=== PATIENT | female | born 1960 | race Caucasian/White ===

== ENCOUNTER 2018-04-09 16:50 | Inpatient (IN) | payer OTHER ==
--- OUTSIDE RECORDS SUMMARY | 2018-04-09 16:52 | XMS REPORT ---
:1960 Author Organization [facility] Address [address] [place] [address] [address]. [address] [place] [address] Care Team Providers Name Role Phone Unavailable Unavailable Unavailable Problems This patient has no known problems. Allergies, Adverse Reactions, Alerts This patient has no known allergies or adverse reactions. Medications This patient has no known medications. Results Test Description Test Time Test Comments Text Results Atomic Results Result Comments MM, BINDU, 2017-12-24 Reason for #[id number] - MAMMO, SCREENING, 12:47:00 Exam:->[id number] MM, DIGITAL, MAMMO, BILATERAL SCREENING, BILATERAL INCLUDING CAD INCLUDING CADBILATERAL DIGITAL SCREENING MAMMOGRAM 3D/2D WITH CAD: 12/23/2017Comparison is made to exams dated: 07/31/2016 mammogram and 07/26/2015 mammogram - [facility]. There are scattered fibroglandular elements in both breasts that could obscure a lesion on mammography. Tomosynthesis 3D imaging of the breast was also performed. Current study was also evaluated with a Computer Aided Detection (CAD) system. No significant masses, calcifications, or other findings are seen in either breast. IMPRESSION: NEGATIVEThere is no mammographic evidence of malignancy. A 1 year screening mammogram is recommended. Sonia Franco M.D., mc/michlele:12/24/2017 12:47:39 Normal BiRad 1-2 Mammogram BI-RADS: 1 Negative G0202
--- OUTSIDE RECORDS SUMMARY | 2018-04-09 16:52 | XMS REPORT | Clinical Summary ---
:1960 Author Organization [facility] Address [address] [place] [address] Phone Care Team Providers Name Role Phone Unavailable Primary Care Provider Unavailable Allergies No Known Allergies Current Medications Prescription Sig. Disp. Refills Start Date End Date Status lisinopril 11/12/2017 Active (PRINIVIL,ZESTRIL) 10 MG tablet PROGESTERONE, BULK, 37.5 mg by Active MISC Miscellaneous route 2 (two) times daily. ESTRADIOL, BULK, Take 0.625 mg by Active MISC mouth 2 (two) times daily. LACTOBACILLUS Take by mouth. Discontinued ACIDOPHILUS 8 (PROBIOTIC ORAL) LISINOPRIL ORAL Take by mouth. Discontinued 8 Active Problems Problem Noted Date HTN (hypertension) 07/17/2015 Perimenopausal vasomotor symptoms 07/17/2015 Encounters Date Type Specialty Care Team Description 12/23/2017 Hospital Encounter Tessie Mitchell Screening breast MD Hedy examination 12/23/2017 Outside Orders Central Scheduling Tessie Mitchell Screening breast MD Hedy examination (Primary Dx) 12/22/2017 Abstract Obstetrics and Sidra Mcarthur Gynecology MA 12/17/2017 Office Visit Obstetrics and Tessie Mitchell Well woman exam with Gynecology MD Hedy routine gynecological exam (Primary Dx) after 04/08/2017 Family History Medical History Relation Name Comments Diabetes Daughter Type1 Breast cancer Mother Diabetes Mother Type2 Hypertension Mother Relation Name Status Comments Daughter Mother Social History Tobacco Use Types Packs/Day Years Used Date Never Smoker Smokeless Tobacco: Never Used Alcohol Use Drinks/Week oz/Week Comments Yes 1-2 Standard drinks or equivalent 0.5 - 1.0 Sex Assigned at Date Recorded Not on file Last Filed Vital Signs Vital Sign Reading Time Taken Blood Pressure 111/71 12/17/2017 10:51 AM CDT Pulse 57 12/17/2017 10:51 AM CDT Temperature 36.8 C (98.2 F) 12/17/2017 10:51 AM CDT Respiratory Rate - - Oxygen Saturation - - Inhaled Oxygen Concentration - - Weight 52.6 kg (116 lb) 12/17/2017 10:51 AM CDT Height 157.5 cm (5' 2") 12/17/2017 10:51 AM CDT Body Mass Index 21.22 12/17/2017 10:51 AM CDT Plan of Treatment Health Maintenance Due Date Last Done Comments INFLUENZA VACCINE 04/06/2018 Results Mammogram Screening Bilateral (12/23/2017 9:43 AM) Specimen Performing Laboratory [facility] Narrative #[id number] - MM, DIGITAL, MAMMO, SCREENING, BILATERAL INCLUDING CAD BILATERAL DIGITAL SCREENING MAMMOGRAM 3D/2D WITH CAD: 12/23/2017 Comparison is made to exams dated:07/31/2016 mammogram and 07/26/2015 mammogram - [facility]. There are scattered fibroglandular elements in both breasts that could obscure a lesion on mammography. Tomosynthesis 3D imaging of the breast was also performed. Current study was also evaluated with a Computer Aided Detection (CAD) system. No significant masses, calcifications, or other findings are seen in either breast. IMPRESSION: NEGATIVE There is no mammographic evidence of malignancy. A 1 year screening mammogram is recommended. Sonia Retana M.D., mc/michelle:12/24/2017 12:47:39 Normal BiRad 1-2 Mammogram BI-RADS: 1 Negative G0202 Procedure Note Interface, External Ris In - 12/25/2017 8:41 AM CDT #[id number] - MM, DIGITAL, MAMMO, SCREENING, BILATERAL INCLUDING CAD BILATERAL DIGITAL SCREENING MAMMOGRAM 3D/2D WITH CAD: 12/23/2017 Comparison is made to exams dated: 07/31/2016 mammogram and 07/26/2015 mammogram - [facility]. There are scattered fibroglandular elements in both breasts that could obscure a lesion on mammography. Tomosynthesis 3D imaging of the breast was also performed. Current study was also evaluated with a Computer Aided Detection (CAD) system. No significant masses, calcifications, or other findings are seen in either breast. IMPRESSION: NEGATIVE There is no mammographic evidence of malignancy. A 1 year screening mammogram is recommended. Sonia Retana M.D., mc/michelle:12/24/2017 12:47:39 Normal BiRad 1-2 Mammogram BI-RADS: [address]-NG RFX HPV ASCU (12/17/2017) Component Value Ref Range Pap Negative for intraephithelial lesion or malignancy Specimen Performing Laboratory EXTERNAL LAB after 04/08/2017
[2018-04-09 17:43] LABS: Absolute Lymphocytes (CBC) 1.3 K/uL (0.7-4.9); Absolute Monocytes 0.9 K/uL (0.1-1.3); Absolute Neutrophil 9.7 K/uL (1.8-8.0); Basophils % 0.1 % (0-1.3); Eosinophils % 0.5 % (0-4.4); Hematocrit 41.5 % (36.0-45.0); Lymphocytes % 10.5 % (15.3-44.8); MCH 32.2 pg (27.0-35.0); MCV 95.1 fL (80-100); Monocytes % 7.5 % (3.3-12.3); RBC Red Blood Cell Count 4.37 M/uL (3.86-4.86)
[2018-04-09 17:59] LABS: Albumin 4.1 g/dL (3.4-5.0); Bilirubin Direct 0.4 mg/dL (0-0.2); Bilirubin Total 1.7 mg/dL (0.2-1.0); Potassium 3.7 mmol/L (3.5-5.1); Protein, Total 8.3 g/dL (6.4-8.2)
[2018-04-09 19:41] LABS: Urine Blood NEGATIVE (NEG); Urine Glucose NEGATIVE (NEG); Urine Protein NEGATIVE (NEG); Urine Specific Gravity 1.005 (1.005-1.030)
--- NOTE | 2018-04-09 20:16 | RAD REPORT ---
EXAM DESCRIPTION: CTAbdomen Pelvis W Contrast - 04/09/2018 7:56 pm CLINICAL HISTORY: Abdominal pain. ABD PAIN COMPARISON: CTSTONE PROTOCOL dated 02/18/2013 TECHNIQUE: Biphasic CT imaging of the abdomen and pelvis was performed with 100 ml non-ionic IV cont rast. All CT scans are performed using dose optimization technique as appropriate and may include automated exposure control or mA/KV adjustment according to patient size. FINDINGS: The lung bases are clear. The liver contains a small cyst in the left lobe measuring 15 mm. No aggressive liver lesion or bilia ry dilatation. The spleen, pancreas and adrenal glands are normal. Multiple bilateral renal stones an d renal cysts are present the largest superior right kidney measuring 5 cm. No hydronephrosis. No bowel obstruction, free air, free fluid or abscess. Wall thickening and pericolonic inflammatory c hanges are present involving the sigmoid colon where several diverticula are present. This likely is related to moderate diverticulitis. Given that an inflammatory mass can have a similar appearance, af ter appropriate therapy, colonoscopy would be suggested. The appendix is normal. No evidence of sign ificant lymphadenopathy. No suspicious bony findings. IMPRESSION: Wall thickening and pericolonic inflammatory changes involving the sigmoid colon where s everal diverticula are present, most compatible with moderate acute diverticulitis. No peridiverticul ar abscess. Following appropriate therapy, colonoscopy would be suggested to exclude possibility of u nderlying inflammatory mass. Bilateral nephrolithiasis without hydronephrosis.
--- NOTE | 2018-04-09 20:22 | EDPHYS ---
Physician Documentation [facility] Name: Lyndsay De Leon Age: 58 yrs Sex: Female : 1960 Arrival Date: 04/09/2018 Time: 16:51 Bed 26 Private MD: Colin Calderón B ED Physician Ryan Lyman HPI: 04/09 17:28 This 58 yrs old Female presents to ER via Ambulatory with complaints of kb Abdominal Pain. 17:28 The patient presents with abdominal pain right lower quadrant. Onset: The kb symptoms/episode began/occurred 2 day(s) ago. The symptoms do not radiate. Associated signs and symptoms: Pertinent positives: diarrhea, Pertinent negatives: nausea and vomiting, fever. The symptoms are described as constant. Modifying factors: The symptoms are alleviated by nothing, the symptoms are aggravated by nothing. Severity of pain: At its worst the pain was moderate in the emergency department the pain is unchanged. The patient has not experienced similar symptoms in the past. The patient has been recently seen by a physician: the patient's primary care provider, earlier today, with similar presenting complaints, and was sent to the [facility] Emergency Department for further evaluation. Historical: - Allergies: 17:07 No Known Allergies; aj - Home Meds: 17:07 Lisinopril Oral [Active]; progesterone micronized oral oral [Active]; thyroid aj medication [Active]; - PMHx: 17:07 Hypothyroidism; Hypertension; aj - PSHx: 17:07 None; aj - Immunization history:: Adult Immunizations up to date. - Social history:: Smoking status: Patient/guardian denies using tobacco. - Ebola Screening: : Patient negative for fever greater than or equal to 101.5 degrees Fahrenheit, and additional compatible Ebola Virus Disease symptoms Patient denies exposure to infectious person Patient denies travel to an Ebola-affected area in the 21 days before illness onset No symptoms or risks identified at this time. ROS: 17:28 Constitutional: Negative for fever, chills, and weight loss, Cardiovascular: Negative kb for chest pain, palpitations, and edema, Respiratory: Negative for shortness of breath, cough, wheezing, and pleuritic chest pain, Back: Negative for injury and pain, : Negative for injury, bleeding, discharge, and swelling, MS/Extremity: Negative for injury and deformity, Skin: Negative for injury, rash, and discoloration, Neuro: Negative for headache, weakness, numbness, tingling, and seizure. 17:28 Abdomen/GI: Positive for abdominal pain, diarrhea. Exam: 17:28 Constitutional: This is a well developed, well nourished patient who is awake, alert, kb and in no acute distress. Head/Face: Normocephalic, atraumatic. Chest/axilla: Normal chest wall appearance and motion. Nontender with no deformity. No lesions are appreciated. Cardiovascular: Regular rate and rhythm with a normal S1 and S2. No gallops, murmurs, or rubs. Normal PMI, no JVD. No pulse deficits. Respiratory: Lungs have equal breath sounds bilaterally, clear to auscultation and percussion. No rales, rhonchi or wheezes noted. No increased work of breathing, no retractions or nasal flaring. Back: No spinal tenderness. No costovertebral tenderness. Full range of motion. Skin: Warm, dry with normal turgor. Normal color with no rashes, no lesions, and no evidence of cellulitis. MS/ Extremity: Pulses equal, no cyanosis. Neurovascular intact. Full, normal range of motion. Neuro: Awake and alert, GCS 15, oriented to person, place, time, and situation. Cranial nerves II-XII grossly intact. Motor strength 5/5 in all extremities. Sensory grossly intact. Cerebellar exam normal. Normal gait. 17:28 Abdomen/GI: Inspection: abdomen appears normal, Bowel sounds: normal, in all quadrants, Palpation: soft, in all quadrants, moderate abdominal tenderness, in the right lower quadrant. Vital Signs: 17:07 BP 144 / 79; Pulse 75; Resp 18; Temp 98.3; Pulse Ox 99% on R/A; Weight 53.07 kg; Height aj 5 ft. 2 in. (157.48 cm); 18:47 BP 121 / 80; Pulse 72; Resp 18; Pulse Ox 96% ; tl3 21:54 BP 118 / 76; Pulse 70; Resp 18; Pulse Ox 100% on R/A; tl3 17:07 Body Mass Index 21.40 (53.07 kg, 157.48 cm) MDM: 17:14 Patient medically screened. 17:28 Data reviewed: vital signs, nurses notes. Data interpreted: Pulse oximetry: on room air kb is 99 %. Interpretation: normal. 20:21 Counseling: I had a detailed discussion with the patient and/or guardian regarding: the kb historical points, exam findings, and any diagnostic results supporting the discharge/admit diagnosis, lab results, radiology results, the need for further work-up and treatment in the hospital. Physician consultation: Varinder Ramirez MD was contacted at 20:21, regarding admission, to the medical/surgical unit. patient's condition, and will see patient in ED, shortly. 04/09 17:24 Order name: Basic Metabolic Panel; Complete Time: 18:00 kb 04/09 17:24 Order name: CBC with Diff; Complete Time: 17:45 kb 04/09 17:24 Order name: Hepatic Function; Complete Time: 18:00 kb 04/09 17:24 Order name: Lipase; Complete Time: 18:00 kb 04/09 17:24 Order name: CT Abd/Pelvis - W/Contrast; Complete Time: 20:18 kb 04/09 17:55 Order name: Urine Dipstick--Ancillary (enter results); Complete Time: 20:03 eb 04/09 17:24 Order name: IV Saline Lock; Complete Time: 19:39 kb 04/09 17:24 Order name: Labs collected and sent; Complete Time: 19:39 kb Administered Medications: Discontinued: Cipro 400 mg 200 ml IVPB once over 60 mins Discontinued: Flagyl 500 mg 100 ml IVPB at 200 ml/hr once over 30 mins 20:55 Drug: Flagyl 500 mg Volume: 100 ml; Route: IVPB; Rate: 200 ml/hr; Infused Over: 30 tl3 mins; Site: right antecubital; 21:54 Follow up: IV Status: Completed infusion; IV Intake: 100ml tl3 20:56 Drug: NS 0.9% 1000 ml Route: IV; Rate: 1000 ml; Site: right antecubital; Delivery: tl3 Primary tubing; 21:53 Follow up: IV Status: Completed infusion; IV Intake: 1000ml tl3 20:56 Drug: Cipro 400 mg Volume: 200 ml; Route: IVPB; Infused Over: 60 mins; Site: right tl3 antecubital; Delivery: Primary tubing; 21:20 CANCELLED (Duplicate Order): Rocephin (cefTRIAXone) 2 grams IM once tl3 21:22 Drug: Rocephin 2 grams Route: IV; Rate: per protocol; Site: right antecubital; tl3 21:54 Follow up: IV Status: Completed infusion; IV Intake: 120ml tl3 Disposition: 04/10 07:12 Co-signature as Attending Physician, Ryan Lyman MD. rn Disposition: 04/09/18 20:21 Hospitalization ordered by Varinder Ramirez for Inpatient Admission. Preliminary diagnosis is Diverticulitis of intestine, part unspecified, without perforation or abscess without bleeding. - Bed requested for Telemetry/MedSurg (Inpatient). - Status is Inpatient Admission. tl3 - Condition is Stable. - Problem is new. - Symptoms are unchanged. UTI on Admission? No Signatures: Dispatcher [employer] EDMS Ashia Ndiaye, VERNA-C AUTOMATION SALES MANAGER-Sarah Alvarez, RN Alize Santizo ms, Roman, MD MD rn LowreyZaira RN RN tl3 Corrections: (The following items were deleted from the chart) 04/09 20:38 20:21 Hospitalization Ordered by Varinder Ramirez MD for Inpatient Admission. Preliminary ms diagnosis is Diverticulitis of intestine, part unspecified, without perforation or abscess without bleeding. Bed requested for Telemetry/MedSurg (Inpatient). Status is Inpatient Admission. Condition is Stable. Problem is new. Symptoms are unchanged. UTI on Admission? No. kb 21:20 21:19 Rocephin (cefTRIAXone) 2 grams IM once ordered. tl3 tl3 21:20 21:20 Rocephin (cefTRIAXone) 2 grams IM once ordered. tl3 tl3 23:54 20:38 04/09/2018 20:21 Hospitalization Ordered by Varinder Ramirez MD for Inpatient tl3 Admission. Preliminary diagnosis is Diverticulitis of intestine, part unspecified, without perforation or abscess without bleeding. Bed requested for Telemetry/MedSurg (Inpatient). Status is Inpatient Admission. Condition is Stable. Problem is new. Symptoms are unchanged. UTI on Admission? No. ms
--- NOTE | 2018-04-09 20:22 | ER ---
Nurse's Notes [facility] Name: Lyndsay De Leon Age: 58 yrs Sex: Female : 1960 Arrival Date: 04/09/2018 Time: 16:51 Bed 26 Private MD: Colin Calderón B Diagnosis: Diverticulitis of intestine, part unspecified, without perforation or abscess without bleeding Presentation: 04/09 17:05 Presenting complaint: Patient states: Sent by Dr Calderón for evaluation for abdominal aj pain since yesterday. Reported tenderness in RLQ with palpation and diarrhea. Transition of care: patient was not received from another setting of care. Onset of symptoms was April 08, 2018. Risk Assessment: Do you want to hurt yourself or someone else? Patient reports no desire to harm self or others. Initial Sepsis Screen: Does the patient meet any 2 criteria? No. Patient's initial sepsis screen is negative. Does the patient have a suspected source of infection? No. Patient's initial sepsis screen is negative. Care prior to arrival: None. 17:05 Method Of Arrival: Ambulatory aj 17:05 Acuity: CHAVA 3 aj Triage Assessment: 17:07 General: Appears in no apparent distress. comfortable, Behavior is calm, cooperative, aj appropriate for age. Pain: Complains of pain in abdomen. Neuro: Level of Consciousness is awake, alert, obeys commands, Oriented to person, place, time, situation, Appropriate for age. Respiratory: Airway is patent Respiratory effort is even, unlabored, Respiratory pattern is regular, symmetrical. GI: Reports lower abdominal pain, upper abdominal pain, diarrhea. Derm: Skin is intact, is healthy with good turgor, Skin is pink, warm \T\ dry. normal. Historical: - Allergies: 17:07 No Known Allergies; aj - Home Meds: 17:07 Lisinopril Oral [Active]; progesterone micronized oral oral [Active]; thyroid aj medication [Active]; - PMHx: 17:07 Hypothyroidism; Hypertension; aj - PSHx: 17:07 None; aj - Immunization history:: Adult Immunizations up to date. - Social history:: Smoking status: Patient/guardian denies using tobacco. - Ebola Screening: : Patient negative for fever greater than or equal to 101.5 degrees Fahrenheit, and additional compatible Ebola Virus Disease symptoms Patient denies exposure to infectious person Patient denies travel to an Ebola-affected area in the 21 days before illness onset No symptoms or risks identified at this time. Screenin:16 Abuse screen: Denies threats or abuse. Nutritional screening: No deficits noted. tl3 Tuberculosis screening: No symptoms or risk factors identified. Fall Risk None identified. Assessment: 17:16 General: Appears in no apparent distress. slender, well groomed, well developed, well tl3 nourished, Behavior is calm, cooperative, appropriate for age. Pain: Complains of pain in abdomen. Neuro: Level of Consciousness is awake, alert, obeys commands, Oriented to person, place, time, situation, Appropriate for age. Cardiovascular: Patient's skin is warm and dry. Respiratory: Airway is patent Respiratory effort is even, unlabored, Respiratory pattern is regular, symmetrical. GI: Bowel sounds Reports diarrhea. GI: Abdomen is tender to palpation in right lower quadrant and left lower quadrant. : No signs and/or symptoms were reported regarding the genitourinary system. EENT: No signs and/or symptoms were reported regarding the EENT system. Derm: No signs and/or symptoms reported regarding the dermatologic system. Musculoskeletal: No signs and/or symptoms reported regarding the musculoskeletal system. 17:47 Reassessment: Ct called and notified that pt finished contrast. tl3 18:47 Reassessment: Patient appears in no apparent distress at this time. No changes from tl3 previously documented assessment. Patient and/or family updated on plan of care and expected duration. Pain level reassessed. Patient is alert, oriented x 3, equal unlabored respirations, skin warm/dry/pink. no needs at this time, awaiting CT. 21:54 Reassessment: Patient appears in no apparent distress at this time. No changes from tl3 previously documented assessment. Patient and/or family updated on plan of care and expected duration. Pain level reassessed. Patient is alert, oriented x 3, equal unlabored respirations, skin warm/dry/pink. awaiting availability of nurse to take report. Vital Signs: 17:07 BP 144 / 79; Pulse 75; Resp 18; Temp 98.3; Pulse Ox 99% on R/A; Weight 53.07 kg; Height aj 5 ft. 2 in. (157.48 cm); 18:47 BP 121 / 80; Pulse 72; Resp 18; Pulse Ox 96% ; tl3 21:54 BP 118 / 76; Pulse 70; Resp 18; Pulse Ox 100% on R/A; tl3 17:07 Body Mass Index 21.40 (53.07 kg, 157.48 cm) aj ED Course: 16:51 Patient arrived in ED. mr 16:51 Colin Calderón MD is Private Physician. mr 17:06 Triage completed. aj 17:07 Arm band placed on right wrist. Patient placed in an exam room. aj 17:14 Ashia Ndiaye FNP-C is PHCP. kb 17:14 Ryan Lyman MD is Attending Physician. kb 17:16 Zaira Storey, NERISSA is Primary Nurse. tl3 17:16 Patient has correct armband on for positive identification. Bed in low position. Call tl3 light in reach. Side rails up X 1. Adult w/ patient. Pulse ox on. NIBP on. 17:16 No provider procedures requiring assistance completed. Initial lab(s) drawn, by mt, tl3 sent to lab. Urine collected: clean catch specimen, clear, Amount Voided: 75mL. Inserted saline lock: 22 gauge in right antecubital area, using aseptic technique. Blood collected. 19:[address] via wheelchair. jg6 19:56 CT Abd/Pelvis - W/Contrast In Process Unspecified. EDMS 20:21 Varinder Ramirez MD is Hospitalizing Provider. kb 22:16 Patient admitted, IV remains in place. tl3 Administered Medications: Discontinued: Cipro 400 mg 200 ml IVPB once over 60 mins Discontinued: Flagyl 500 mg 100 ml IVPB at 200 ml/hr once over 30 mins 20:55 Drug: Flagyl 500 mg Volume: 100 ml; Route: IVPB; Rate: 200 ml/hr; Infused Over: 30 tl3 mins; Site: right antecubital; 21:54 Follow up: IV Status: Completed infusion; IV Intake: 100ml tl3 20:56 Drug: NS 0.9% 1000 ml Route: IV; Rate: 1000 ml; Site: right antecubital; Delivery: tl3 Primary tubing; 21:53 Follow up: IV Status: Completed infusion; IV Intake: 1000ml tl3 20:56 Drug: Cipro 400 mg Volume: 200 ml; Route: IVPB; Infused Over: 60 mins; Site: right tl3 antecubital; Delivery: Primary tubing; 21:20 CANCELLED (Duplicate Order): Rocephin (cefTRIAXone) 2 grams IM once tl3 21:22 Drug: Rocephin 2 grams Route: IV; Rate: per protocol; Site: right antecubital; tl3 21:54 Follow up: IV Status: Completed infusion; IV Intake: 120ml tl3 Intake: 21:53 IV: 1000ml; Total: 1000ml. tl3 21:54 IV: 100ml; Total: 1100ml. tl3 21:54 IV: 120ml; Total: 1220ml. tl3 Outcome: 20:21 Decision to Hospitalize by Provider. kb 22:13 Admitted to Tele accompanied by tech, via wheelchair, with chart, Report called to tl3 NERISSA Kuhn 22:13 Condition: stable 22:13 Instructed on the need for admit. 23:54 Patient left the ED. tl3 Signatures: Dispatcher [employer] EDAshia Huynh, FOOD COOKING MACHINE OPERATOR-C FOOD COOKING MACHINE OPERATOR-Sarah Alvarez, RN Lyndsay Carpenter Tammy, RN RN tl3 Garcia, Jessica j6
[2018-04-09] MEDS ORDERED: NA CHLORIDE 0.9% 1,000 ML ONE (20:45)
[2018-04-09] MEDS ORDERED: METRONIDAZOLE 500mg IVPB 500 MG/100 ML BAG IV ONE (20:45)
[2018-04-09] MEDS ORDERED: CIPROFLOXACIN 400mg IV 0 MG/0 ML BAG IV ONE (20:45)
--- NOTE | 2018-04-09 21:05 | P.HP ---
Certification for Inpatient Patient admitted to: Inpatient With expected LOS: >2 Midnights Practitioner: I am a practitioner with admitting privileges, knowledge of patient current condition, hospital course, and medical plan of care. Services: Services provided to patient in accordance with Admission requirements found in Title 42 Section 412.3 of the Code of Federal Regulations Patient History Date of Service: 04/09/18 Reason for admission: Acute diverticulitis History of Present Illness: Ms De Leon is a 58-year-old woman with history of hypertension and hypothyroidism, who start with abdominal pain about 2 weeks ago. Her pain was localized in lower abdomen, she described the pain as cramp, intensity 3/10. Initially the patient was on and off, but today the pain was more constant and it was associated with diarrhea. She denied any bloody stools, nausea or vomiting. She has not had fever but chills. She has never had these kind of symptoms in the past. Lab work remarkable for leukocytosis 12th K, mild elevation of total bilirubin, CT abdomen and pelvis consistent with diverticulosis with acute diverticulitis. Allergies No Known Allergies Allergy (Verified 03/30/12 15:10) Home medications list reviewed: Yes - Past Medical/Surgical History -: Hypertension -: Hypothyroidism Past Surgical History: Reviewed- Non-Contributory - Family History Family History: Reviewed- Non-Contributory - Social History Smoking Status: Never smoker Alcohol use: Yes CD- Drugs: No Place of Residence: Home Review of Systems 10-point ROS is otherwise unremarkable Physical Examination - Physical Exam General: Alert, In no apparent distress HEENT: Atraumatic, PERRLA, Mucous membr. moist/pink, EOMI, Sclerae nonicteric Neck: Supple, 2+ carotid pulse no bruit, No LAD, Without JVD or thyroid abnormality Respiratory: Clear to auscultation bilaterally, Normal air movement Cardiovascular: Regular rate/rhythm, Normal S1 S2 Gastrointestinal: Normal bowel sounds, Tenderness (Generalize tender to palpation) Musculoskeletal: No tenderness Integumentary: No rashes Neurological: Normal speech, Normal strength at 5/5 x4 extr, Normal tone, Normal affect Lymphatics: No axilla or inguinal lymphadenopathy - Studies Laboratory Data (last 24 hrs) 04/09/18 17:15: WBC 12.0 H, Hgb 14.1, Hct 41.5, Plt Count 205 04/09/18 17:15: Sodium 142, Potassium 3.7, BUN 14, Creatinine 0.90, Glucose 96, Total Bilirubin 1.7 H, AST 18, ALT 23, Alkaline Phosphatase 84, Lipase 156 Assessment and Plan - Problems (Diagnosis) (1) Acute diverticulitis Current Visit: Yes Status: Acute (2) Diverticulosis Current Visit: Yes Status: Acute Qualifiers: Diverticulosis site: diverticulosis of large intestine Diverticulosis bleeding: diverticulosis without bleeding Qualified Code(s): K57.30 - Diverticulosis of large intestine without perforation or abscess without bleeding (3) Hypertension Current Visit: Yes Status: Acute Qualifiers: Hypertension type: essential hypertension Qualified Code(s): I10 - Essential (primary) hypertension (4) Hypothyroidism Current Visit: Yes Status: Acute Qualifiers: Hypothyroidism type: unspecified Qualified Code(s): E03.9 - Hypothyroidism , unspecified - Plan The patient will be admitted to the hospital due to acute diverticulitis. No complications reported on CT scan. Will continue with IV fluid, symptomatic medication for pain, and empiric treatment with IV Cipro and Flagyl. She may need an evaluation by GI for colonoscopy once acute process is resolved. - Advance Directives Does patient have a Living Will: No Does patient have a Durable POA for Healthcare: No - Code Status/Comfort Care Code Status Assessed: Yes Code Status: Full Code
[2018-04-09] MEDS ORDERED: NA CHLORIDE 0.9% 100 ML IV ONE (21:20)
[2018-04-09] MEDS ORDERED: CEFTRIAXONE/SWI 1gm 2 GM/20 ML SYR ONE (21:20)
[2018-04-09] MEDS ORDERED: ACETAMINOPHEN 500 MG TAB PO PRN (22:28)
[2018-04-09] MEDS ORDERED: ONDANSETRON 4 MG/2 ML VIAL IV PRN (22:28)
[2018-04-09] MEDS ORDERED: KETOROLAC 30 MG/ML INJ IV PRN (22:28)
[2018-04-09] MEDS ORDERED: PIPER/TAZO/NS 3.375gm 6.750 GM/200 ML BAG ONE (23:28)
[2018-04-09] MEDS: NA CHLORIDE 0.9% 1,000 ML IV SCH (23:44)
[2018-04-09] MEDS: PIPER/TAZO/NS 3.375gm 3.375 GM/100 ML BAG IVPB SCH (23:45)
[2018-04-10 00:30] VITALS: O2SAT 100
[2018-04-10] MEDS ORDERED: HYDRALAZINE HCL 20 MG/ML VIAL IV PRN (01:03)
[2018-04-10] MEDS ORDERED: ZOLPIDEM TARTRATE 5 MG TABLET PO PRN (01:04)
[2018-04-10 05:30] LABS: Absolute Lymphocytes (CBC) 1.4 K/uL (0.7-4.9); Absolute Monocytes 0.8 K/uL (0.1-1.3); Absolute Neutrophil 5.5 K/uL (1.8-8.0); Basophils % 0.5 % (0-1.3); Eosinophils % 2.1 % (0-4.4); Hematocrit 34.8 % (36.0-45.0); MCH 33.3 pg (27.0-35.0); MCV 94.4 fL (80-100); MPV 9.4 fL (7.6-11.3); Monocytes % 9.6 % (3.3-12.3); RBC Red Blood Cell Count 3.69 M/uL (3.86-4.86)
[2018-04-10 05:47] LABS: Potassium 3.3 mmol/L (3.5-5.1)
[2018-04-10] MEDS: NA CHLORIDE 0.9% 1,000 ML IV SCH ×2 (06:41→17:24)
[2018-04-10] MEDS: PIPER/TAZO/NS 3.375gm 3.375 GM/100 ML BAG IVPB SCH ×3 (06:41→17:24)
[2018-04-10] MEDS ORDERED: POTASSIUM CL SA 10 MEQ TAB PO ONE (08:00)
[2018-04-10] MEDS: ENOXAPARIN 40 MG/0.4 ML SQ SCH (08:30)
--- NOTE | 2018-04-10 17:40 | PN ---
Subjective: The patient seen and examined. Chart reviewed and case discussed with RN. The patient states she is feeling better, however, still having some abdominal pain and nausea. Does states that she is starting to get hungry and would like to try some food. Review of Systems: Negative except as above. Medications: List reviewed. Physical Examination: Vital Signs: Temperature 98.9, heart rate 62, blood pressure 138/82, respirations 18, O2 99% on room air. General: Awake, alert, oriented x3, in some mild distress due to pain. Frail female. CV: S1, S2. No murmurs. Regular rate and rhythm. Peripheral pulses regular. Respiratory: Moving air well bilaterally. No wheezing or stridor. No use of accessory muscles. Gastrointestinal: Pain and tenderness to palpation in the epigastric region in the left lower quadra nt. Bowel sounds hyperactive. No distention. Some guarding. No rigidity. Extremities: No clubbing, cyanosis, or edema. Neurologic: Nonfocal. Laboratory Data: Sodium 143, potassium 3.3, chloride 110, CO2 25, BUN 10, creatinine 0.7, glucose 73 , calcium 8.4. Repeat potassium 3.4. WBC 7.9, H and H 12.3 and 34.8, platelets 175, neutrophils 69% . CT scan of the abdomen and pelvis shows wall thickening and pericolonic inflammatory changes involvin g the sigmoid colon. There are several diverticula are present, most compatible with moderate acute diverticulitis. No peridiverticular abscess, bilateral nephrolithiasis without hydronephrosis. Smal l cyst in the left liver lobe measuring 15 mm, cyst in the right kidney measuring 5 cm. Assessment/plan: A 58-year-old female with: 1.Abdominal pain in the right upper quadrant and epigastric region. 2.Acute diverticulitis. 3.Diverticulosis with large intestine without bleeding. 4.Essential hypertension. 5.Hypothyroidism. 6.Hypokalemia. 7.Hypocalcemia. Plan: Continue with IV antibiotics. Continue IV fluids and antiemetics. We will advance diet and s ee if the patient is able to tolerate diet. Continue pain medications. Replace electrolytes and mon itor. Likely discharge in the next 24-48 hours once continues to improve. SA/MODL Voice ID: [id number] Report ID: [id number]
[2018-04-10] MEDS ORDERED: POTASSIUM 25 MEQ EFFERV TAB PO ONE (18:59)
[2018-04-11] MEDS: PIPER/TAZO/NS 3.375gm 3.375 GM/100 ML BAG IVPB SCH ×2 (00:35→08:30)
[2018-04-11] MEDS: NA CHLORIDE 0.9% 1,000 ML IV SCH (03:30)
[2018-04-11 05:24] VITALS: BMI 21.7
[2018-04-11 05:37] LABS: Magnesium 2.2 mg/dL (1.8-2.4); Potassium 3.7 mmol/L (3.5-5.1)
[2018-04-11] MEDS ORDERED: POTASSIUM 25 MEQ EFFERV TAB PO ONE (05:44)
[2018-04-11] MEDS: ENOXAPARIN 40 MG/0.4 ML SQ SCH ×2 (08:30→08:35)
[2018-04-11] MEDS ORDERED: LISINOPRIL 10 MG TAB PO SCH (09:00)
[2018-04-11 12:34] VITALS: BP 115/74; TEMP 98.6
--- NOTE | 2018-04-12 06:25 | DS ---
Date of Discharge: 04/11/2018 Discharge Diagnoses: 1.Acute diverticulitis. 2.Abdominal pain secondary to #1, resolved. 3.Hypertension. 4.Hypothyroidism. 5.Hypokalemia, replaced. 6.Hypocalcemia, resolved. Procedure: CAT scan of the abdomen and pelvis showed wall thickening and pericolonic inflammatory ch anges involving the sigmoid colon. There were several diverticula present compatible with acute dive rticulitis. Consult: None. History Of Present Illness: Please refer to Dr. Hickman's note. Hospital Course: Initially, the patient presented with history of lower abdominal pain associated wi th diarrhea. CT scan of the abdomen and pelvis was consistent with acute diverticulitis. The patien t was started on IV antibiotic with Zosyn. She was kept n.p.o. overnight and then, her diet was adva nced. White blood cells went down from 12 down to 7.9. She has tolerated diet well next day and she will be discharged today in stable condition. She was advised strongly to follow up with primary ca re physician and arrange for colonoscopy as an outpatient to rule out mass as we could not do colonos copy with active infection. I will switch her antibiotics to oral Flagyl and Levaquin. The patient has listed allergy to Cipro, but apparently she only had nausea with Cipro, not actual allergic react ion. She will be discharged today in stable condition, continue antibiotics for 12 days. Discharge Condition: Good. Disposition: Discharged to home. Discharge Activity: As tolerated. Discharge Diet: Liquid diet and advance slowly as tolerated. Discharge Medications: Levaquin 500 mg once a day for the next 7 days, Flagyl 500 mg every 8 hours f or the next 12 days, lisinopril 10 mg once a day. Discharge Physical Examination: Vital Signs: Blood pressure is 115/74, respiratory rate 18, pulse 6 0, temperature 98.6. General: She is alert and oriented x3. Does not look in any distress. HEENT: Atraumatic, normocephalic. PERRLA. Oral mucosa is moist. Neck: Supple. No JVD. No carotid bruits. Chest: Clear to auscultation. Good air entry. Heart: Regular rate and rhythm. S1, S2 normal. No gallop or murmur. Abdomen: Soft, nontender. No masses. No hepatosplenomegaly. Positive bowel sounds. Extremities: No clubbing, cyanosis, or edema. No calf tenderness. Neurologic: Grossly intact. Cranial nerve exam 2 through 12 intact. Normal sensation. No reflexes . Normal muscle strength. Followup: Follow up with the primary care physician in 1 week and primary care physician to refer larry sue for colonoscopy as outpatient to rule out mass when infection subsided. SHANTELL Voice ID: [id number] Report ID: [id number]
== END 2018-04-11 15:08 | disposition home or self-care (01) | DRG 392 ==
LOC: ER 16:50 → ERHOLD 20:50 → 4TH 22:12
PROVIDERS: ADMIT Internal Medicine; ATTEND Internal Medicine
DX: K57.92 Diverticulitis of intestine, part unspecified, without perforation or abscess without bleeding (principal); I10 Essential (primary) hypertension; E03.9 Hypothyroidism, unspecified; E87.6 Hypokalemia; E83.51 Hypocalcemia; K57.30 Diverticulosis of large intestine without perforation or abscess without bleeding
CPT/HCPCS: 36415; 74177; 80048; 80076; 81003; 83690; 83735; 84132; 85025; 96365; 96375; 99285; J0696; J0744; J1650; J2543; J7030; Q9967